=== PATIENT | female | born 1990 | race Caucasian/White ===

== ENCOUNTER 2016-11-04 16:04 | Emergency (ER) | payer OTHER ==
[2016-11-04 16:52] VITALS: BP 103/79
[2016-11-04] MEDS ORDERED: Ondansetron ODT TAB* 4 MG PO ONE (17:26)
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
== END 2016-11-04 18:13 | disposition home or self-care (01) ==
LOC: UCCORT 16:04
DX: Z33.1 Pregnant state, incidental (principal); F17.210 Nicotine dependence, cigarettes, uncomplicated
CPT/HCPCS: 81025; 87086; 99202; A9270-GY; G0463

== ENCOUNTER 2018-11-08 13:39 | Emergency (ER) | payer OTHER ==
[2018-11-08 16:27] VITALS: BP 149/92
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
[2018-11-08 16:39] LABS: Influenza A Molecular POSITIVE (Negative)
[2018-11-08] MEDS ORDERED: Dexamethasone TAB* 4 MG PO ONE (16:51)
== END 2018-11-08 17:03 | disposition home or self-care (01) ==
LOC: UCCORT 13:39
DX: J10.1 Influenza due to other identified influenza virus with other respiratory manifestations (principal); F17.210 Nicotine dependence, cigarettes, uncomplicated
CPT/HCPCS: 99212; G0463; J8540

== ENCOUNTER 2019-05-16 21:55 | Emergency (ER) | payer OTHER ==
[2019-05-16 22:08] VITALS: BP 119/78
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
--- NOTE | 2019-05-17 10:38 | UC ---
- Progress Note Progress Note: Rt elbow xray official read: "IMPRESSION: #. Small joint effusion. Radiographic occult fracture most typically involving the radial head is not excluded." Shoulder xray: official read is negative -pt has been called by nursing staff to relay unable to exclude frx. she will cont w/ current plan, rest, MADISYN and call ortho on Sunday Course/Dx - Diagnoses Provider Diagnoses: Injury of right elbow, Right shoulder pain Discharge - Sign-Out/Discharge Documenting (check all that apply): Post-Discharge Follow Up All imaging exams completed and their final reports reviewed: Yes - Discharge Plan Condition: Stable Disposition: HOME Patient Education Materials: Arthralgia (ED), Shoulder Pain (ED) Referrals: Jose Merrill MD [Medical Doctor] - JACKSON Bagley [Primary Care Provider] - If Needed - Billing Disposition and Condition Condition: STABLE Disposition: Home
== END 2019-05-16 22:34 | disposition home or self-care (01) ==
LOC: UCCORT 21:55
DX: S59.901A Unspecified injury of right elbow, initial encounter (principal); W01.0XXA Fall on same level from slipping, tripping and stumbling without subsequent striking against object, initial encounter; Y92.9 Unspecified place or not applicable; M25.511 Pain in right shoulder; M25.421 Effusion, right elbow; F17.210 Nicotine dependence, cigarettes, uncomplicated
CPT/HCPCS: 99212; G0463